=== PATIENT | female | born 1975 | race Two or more races ===

== ENCOUNTER 2019-01-17 08:09 | Outpatient (CLI) | payer OTHER | END 2019-01-17 08:16 | disposition home or self-care (01) | LOC: SONOGRAMA 08:09 | DX: E04.1 Nontoxic single thyroid nodule (principal) ==

== ENCOUNTER 2021-03-28 07:46 | Outpatient (CLI) | payer OTHER | END 2021-03-28 08:01 | disposition home or self-care (01) | LOC: SONOGRAMA 07:46 | PROVIDERS: ATTEND Pathology Anatomic Pathology & Clinical Pathology | DX: E04.1 Nontoxic single thyroid nodule (principal) ==